=== PATIENT | female | born 1965 | race Caucasian/White ===

== ENCOUNTER → 2017-11-21 | Outpatient (CLI) | payer SELFPAY ==
[2017-11-21 10:54] LABS: ALBUMIN 4.6 g/dL (3.5-5.0); CALCIUM 9.3 mg/dL (8.4-10.2); POTASSIUM 4.1 mmol/L (3.6-5.0); TOTAL BILIRUBIN 1.2 mg/dL (0.2-1.3); TOTAL PROTEIN 7.4 g/dL (6.3-8.2)
== END ==
LOC: LAB 09:54
PROVIDERS: Nurse Practitioner Family
DX: R53.83 Other fatigue (principal)

== ENCOUNTER → 2023-01-24 | Outpatient (CLI) | payer BC | LOC: RAD 11:53 | DX: R51.9 Headache, unspecified (principal) ==